=== PATIENT | male | born 1960 | race Two or more races ===

== ENCOUNTER 2023-05-23 15:40 | Inpatient (IN) | payer OTHER ==
[~2023-05-23] VITALS: Ht 165.1 cm; Wt 76.1 kg
[2023-05-23] MEDS ORDERED: IBUPROFEN 600 MG TABLET PO ONE (16:15)
[2023-05-23] MEDS ORDERED: FINA-27 PO (17:50)
[2023-05-23] MEDS ORDERED: SULI200T4 PO (17:50)
[2023-05-23] MEDS ORDERED: CAPS60CR3 TP (17:50)
[2023-05-23] MEDS ORDERED: LACT10SO10 PO (17:50)
[2023-05-23] MEDS ORDERED: BUPR1FIL7 SL (17:50)
[2023-05-23] MEDS ORDERED: TAMS0.4C94 PO (17:50)
[2023-05-23] MEDS ORDERED: ATOR20TA65 PO (17:50)
[2023-05-23] MEDS ORDERED: ACET-2895 PO (17:50)
[2023-05-23] MEDS ORDERED: LISI-661 PO (17:50)
[2023-05-23] MEDS ORDERED: ASPI81TA87 PO (17:50)
[2023-05-23] MEDS ORDERED: CALC625T66 PO (17:50)
[2023-05-23] MEDS ORDERED: HYDR25TA2 PO (17:50)
[2023-05-23] MEDS ORDERED: SPIR-37 PO (17:50)
[2023-05-23] MEDS ORDERED: COLL1PAC16 TP (17:50)
[2023-05-23] MEDS ORDERED: LEVO25TA9 PO (17:50)
[2023-05-23] MEDS ORDERED: LIDO1ADH83 TP (17:50)
[2023-05-23] MEDS ORDERED: FLUO20SO24 PO (17:50)
[2023-05-23 18:02] LABS: BASOPHILS % (AUTO) 1.3 % (0.0-2.0); EOSINOPHILS % (AUTO) 2.2 % (1.0-6.0); HEMATOCRIT 37.8 % (41-53); HEMOGLOBIN 12.6 g/dL (13.5-17.5); LYMPHOCYTES % (AUTO) 33.9 % (22.0-44.0); MEAN CORPUSCULAR HEMOGLOBIN 31.8 pg (26.0-34.0); MEAN CORPUSCULAR HGB CONC 33.4 G/dL (31.0-37.0); MEAN CORPUSCULAR VOLUME 95 fL (80-100); MONOCYTES # (AUTO) 0.5 K/uL (0.1-1.0); MONOCYTES % (AUTO) 7.7 % (2.0-9.0); NEUTROPHILS # (AUTO) 3.2 K/uL (1.8-7.7); NEUTROPHILS % (AUTO) 54.9 % (40.0-70.0); PLATELET COUNT (AUTO) 175 K/uL (150-450); RED BLOOD CELL COUNT(AUTO) 3.97 MIL/uL (4.50-5.90); RED CELL DISTRIBUTION WIDTH 13.7 % (11.5-14.5); WHITE BLOOD COUNT (AUTO) 5.9 K/uL (4.5-11.0)
[2023-05-23 18:13] LABS: ANION GAP 8 mmol/L (8-16); CALCIUM, TOTAL 9.1 mg/dL (8.8-10.5); CARBON DIOXIDE 29 mmol/L (22-29); CHLORIDE 101 mmol/L (98-107); CREATININE 0.58 mg/dL (0.60-1.30); GLOMERULAR FILTR. RATE CALC > 60 mL/min (>60); GLUCOSE,RANDOM 99 mg/dL (70-110); POTASSIUM 3.8 mmol/L (3.5-5.1); SODIUM SERUM 138 mmol/L (136-145); UREA NITROGEN, BLOOD 14 mg/dL (7-18)
[2023-05-23 18:22] LABS: TROPONIN I-HIGH SENSITIVITY 4 ng/L (<76)
[2023-05-23 18:23] LABS: B-TYPE NATRIURETIC PEPTIDE 24 pg/mL (0-100)
[2023-05-23 18:39] LABS: ALANINE AMINOTRANSFERASE 24 U/L (12-78); ALKALINE PHOSPHATASE 138 U/L (46-116); ASPARTATE AMINOTRANSFERASE 20 U/L (15-37); BILIRUBIN,TOTAL 0.4 mg/dL (0.1-1.0); CREATINE KINASE, TOTAL ONLY 165 U/L (39-308); TOTAL PROTEIN, SERUM 7.4 g/dL (6.4-8.2)
[2023-05-23 19:43] LABS: COVID AG,FIA SOURCE NASAL SWAB
[2023-05-23 19:46] LABS: APPEARANCE,URINE CLEAR (CLEAR); BILIRUBIN,URINE NEGATIVE (NEGATIVE); COLOR,URINE LIGHT YELLOW (YELLOW); GLUCOSE, URINE (UA) NEGATIVE (NEGATIVE); KETONES,URINE NEGATIVE (NEGATIVE); LEUKOCYTE ESTERASE ,URINE NEGATIVE (NEGATIVE); NITRATE,URINE NEGATIVE (NEGATIVE); OCCULT BLOOD,URINE NEGATIVE (NEGATIVE); PROTEIN,URINE NEGATIVE (NEGATIVE); SPECIFIC GRAVITIY, URINE 1.009 (1.003-1.030); UROBILINOGEN,URINE <=1.0 mg/dL (<=1.0)
[2023-05-23] MEDS ORDERED: CLINDAMYCIN 600 MG/D5% WATER 50 ML IV ONE (20:00)
[2023-05-23] MEDS ORDERED: ONDANSETRON HCL 4 MG/2 ML VIAL IVP PRN (20:00)
[2023-05-23] MEDS ORDERED: ACETAMINOPHEN 325 MG TABLET PO PRN (20:00)
[2023-05-23 20:01] LABS: SARS-COV2 (COVID) ANTIGEN,FIA Negative (Negative)
[2023-05-23 20:41] VITALS: BP 142/86; PULSE 61; RESP 18; TEMP 97.5
[2023-05-23] MEDS ORDERED: SULFAMETHOX/TRIMETH DS 800-160 MG/TABLET PO ONE (20:45)
[2023-05-23 21:00] VITALS: BP 142/86; PULSE 61; RESP 18; TEMP 97.5; O2SAT 100
[2023-05-23] MEDS ORDERED: LACTULOSE 20 GM/30 ML SOLUTION UDCUP PO PRN (21:00)
[2023-05-23] MEDS ORDERED: VANCOMYCIN HCL 1.5 GM in DEXTROSE 5%-WATER 250 ML IV ONE (21:30)
[2023-05-23] MEDS: SULINDAC 200 MG TABLET PO SCH (22:46)
[2023-05-23] MEDS: DOCUSATE SODIUM 100 MG CAPSULE PO SCH (22:46)
[2023-05-23] MEDS: CALCIUM POLYCARBOPHIL 625 MG TABLET PO SCH (22:47)
[2023-05-23] MEDS: CAPSAICIN 0.025% 60 GM CREAM TP SCH (22:47)
[2023-05-24] VITALS (8 sets, daily range): BP systolic 96–141; BP diastolic 54–92; PULSE 61–89; RESP 18–20; TEMP 97.5–98.3
[2023-05-24] MEDS: HEPARIN SODIUM,PORCINE 5,000 UNITS/ML VIAL SQ SCH ×3 (00:43→16:10)
[2023-05-24 05:21] LABS: BASOPHILS % (AUTO) 0.4 % (0.0-2.0); EOSINOPHILS % (AUTO) 2.8 % (1.0-6.0); HEMATOCRIT 36.5 % (41-53); HEMOGLOBIN 12.7 g/dL (13.5-17.5); LYMPHOCYTES # (AUTO) 1.6 K/uL (1.0-4.8); LYMPHOCYTES % (AUTO) 24.6 % (22.0-44.0); MEAN CORPUSCULAR HEMOGLOBIN 32.4 pg (26.0-34.0); MEAN CORPUSCULAR HGB CONC 34.7 G/dL (31.0-37.0); MEAN CORPUSCULAR VOLUME 93 fL (80-100); MONOCYTES # (AUTO) 0.6 K/uL (0.1-1.0); MONOCYTES % (AUTO) 8.9 % (2.0-9.0); NEUTROPHILS # (AUTO) 4.2 K/uL (1.8-7.7); NEUTROPHILS % (AUTO) 63.3 % (40.0-70.0); PLATELET COUNT (AUTO) 176 K/uL (150-450); RED BLOOD CELL COUNT(AUTO) 3.92 MIL/uL (4.50-5.90); WHITE BLOOD COUNT (AUTO) 6.6 K/uL (4.5-11.0)
[2023-05-24 05:35] LABS: ANION GAP 6 mmol/L (8-16); CALCIUM, TOTAL 8.9 mg/dL (8.8-10.5); CARBON DIOXIDE 31 mmol/L (22-29); CHLORIDE 102 mmol/L (98-107); CREATININE 0.64 mg/dL (0.60-1.30); GLOMERULAR FILTR. RATE CALC > 60 mL/min (>60); GLUCOSE,RANDOM 91 mg/dL (70-110); POTASSIUM 4.1 mmol/L (3.5-5.1); SODIUM SERUM 139 mmol/L (136-145); UREA NITROGEN, BLOOD 10 mg/dL (7-18)
[2023-05-24] MEDS: LEVOTHYROXINE SODIUM 25 MCG TABLET PO SCH (06:12)
[2023-05-24] MEDS ORDERED: VANCOMYCIN HCL 1.25 GM in DEXTROSE 5%-WATER 250 ML IV SCH (08:00)
[2023-05-24] MEDS: FLUoxetine HCL 20 MG CAPSULE PO SCH (08:52)
[2023-05-24] MEDS: DOCUSATE SODIUM 100 MG CAPSULE PO SCH ×2 (08:52→21:46)
[2023-05-24] MEDS: LISINOPRIL 10 MG TABLET PO SCH (08:52)
[2023-05-24] MEDS: FINASTERIDE 5 MG TABLET PO SCH (08:52)
[2023-05-24] MEDS: ASPIRIN 81 MG DR TABLET PO SCH (08:53)
[2023-05-24] MEDS: TAMSULOSIN HCL 0.4 MG CAPSULE PO SCH (08:53)
[2023-05-24] MEDS: SPIRONOLACTONE 25 MG TABLET PO SCH (08:53)
[2023-05-24] MEDS: VANCOMYCIN 1GM/WATER(PEG/NADA) 200 ML IV SCH ×2 (09:00→16:09)
[2023-05-24] MEDS: COLLOIDAL OATMEAL PACKET TP SCH (09:00)
[2023-05-24] MEDS: CALCIUM POLYCARBOPHIL 625 MG TABLET PO SCH ×2 (09:00→21:52)
[2023-05-24] MEDS: CAPSAICIN 0.025% 60 GM CREAM TP SCH ×3 (09:00→21:00)
[2023-05-24] MEDS: ATORVASTATIN CALCIUM 20 MG TABLET PO SCH (09:00)
[2023-05-24] MEDS ORDERED: COLLOIDAL OATMEAL PACKET TP SCH (09:00)
[2023-05-24] MEDS ORDERED: HYDROCHLOROTHIAZIDE 25 MG TABLET PO SCH (09:00)
[2023-05-24] MEDS: SULINDAC 200 MG TABLET PO SCH ×2 (09:02→21:46)
[2023-05-25] VITALS: BP 109/72; PULSE 63; RESP 18; TEMP 97.5
[2023-05-25] MEDS: VANCOMYCIN 1GM/WATER(PEG/NADA) 200 ML IV SCH ×2 (00:23→08:54)
[2023-05-25] MEDS: HEPARIN SODIUM,PORCINE 5,000 UNITS/ML VIAL SQ SCH ×3 (00:23→16:00)
[2023-05-25 04:39] VITALS: BP 121/69; PULSE 57; RESP 18; TEMP 97.4
[2023-05-25] MEDS: LEVOTHYROXINE SODIUM 25 MCG TABLET PO SCH (05:53)
[2023-05-25 07:09] LABS: ANION GAP 6 mmol/L (8-16); CALCIUM, TOTAL 8.9 mg/dL (8.8-10.5); CARBON DIOXIDE 30 mmol/L (22-29); CHLORIDE 101 mmol/L (98-107); CREATININE 0.67 mg/dL (0.60-1.30); GLOMERULAR FILTR. RATE CALC > 60 mL/min (>60); GLUCOSE,RANDOM 93 mg/dL (70-110); POTASSIUM 4.6 mmol/L (3.5-5.1); SODIUM SERUM 137 mmol/L (136-145); UREA NITROGEN, BLOOD 16 mg/dL (7-18)
[2023-05-25 08:16] VITALS: BP 127/78; PULSE 68; RESP 16; TEMP 98.1
[2023-05-25] MEDS: DOCUSATE SODIUM 100 MG CAPSULE PO SCH (08:44)
[2023-05-25] MEDS: SPIRONOLACTONE 25 MG TABLET PO SCH (08:44)
[2023-05-25] MEDS: ASPIRIN 81 MG DR TABLET PO SCH (08:45)
[2023-05-25] MEDS: TAMSULOSIN HCL 0.4 MG CAPSULE PO SCH (08:46)
[2023-05-25] MEDS: FLUoxetine HCL 20 MG CAPSULE PO SCH (08:46)
[2023-05-25] MEDS: FINASTERIDE 5 MG TABLET PO SCH (08:46)
[2023-05-25] MEDS: ATORVASTATIN CALCIUM 20 MG TABLET PO SCH (08:46)
[2023-05-25] MEDS: LISINOPRIL 10 MG TABLET PO SCH (08:46)
[2023-05-25] MEDS: CAPSAICIN 0.025% 60 GM CREAM TP SCH ×3 (09:00→16:00)
[2023-05-25] MEDS: COLLOIDAL OATMEAL PACKET TP SCH (09:00)
[2023-05-25] MEDS: SULINDAC 200 MG TABLET PO SCH (11:37)
[2023-05-25] MEDS ORDERED: CLIN300C58 PO (11:46)
[2023-05-25 11:51] VITALS: BP 109/66; PULSE 68; RESP 16; TEMP 97.7
[2023-05-25] MEDS: CALCIUM POLYCARBOPHIL 625 MG TABLET PO SCH (11:56)
[2023-05-25 16:00] VITALS: BP 128/68; PULSE 66; RESP 17; TEMP 98
[2023-05-25] MEDS ORDERED: CLINDAMYCIN HCL 300 MG CAPSULE PO SCH (16:00)
== END 2023-05-25 19:45 | DRG 603 ==
LOC: EMS 15:42 → 5S 20:39
PROVIDERS: ADMIT Internal Medicine; ATTEND Internal Medicine
DX: L03.115 Cellulitis of right lower limb (principal); Z20.822 Contact with and (suspected) exposure to COVID-19; E78.5 Hyperlipidemia, unspecified; F19.10 Other psychoactive substance abuse, uncomplicated; N40.0 Benign prostatic hyperplasia without lower urinary tract symptoms; G89.29 Other chronic pain; M54.9 Dorsalgia, unspecified; E03.9 Hypothyroidism, unspecified; L60.0 Ingrowing nail; I10 Essential (primary) hypertension; F31.9 Bipolar disorder, unspecified; F60.3 Borderline personality disorder; Z87.891 Personal history of nicotine dependence
CPT/HCPCS: 71045; 80048; 80053; 80202; 81003; 82550; 83735; 83880; 84443; 84484; 85025; 85651; 86140; 93005; 99285; J1644; J3370; J3490; J7060; Q9967; 36415-L1; 36415-TC

== ENCOUNTER 2023-07-22 18:26 | Inpatient (IN) | payer OTHER ==
[~2023-07-22] VITALS: Ht 162.6 cm; Wt 77.3 kg
[~2023-07-22 18:26] MED LIST: ACET-2895 PO; ASPI81TA87 PO; ATOR20TA65 PO; BUPR1FIL7 SL; CALC625T66 PO; CAPS60CR3 TP; CLIN300C58 PO; COLL1PAC16 TP; FINA-27 PO; FLUO20SO24 PO; LACT10SO10 PO; LEVO25TA9 PO; LIDO1ADH83 TP; LISI-661 PO; SPIR-37 PO; SULI200T4 PO; TAMS0.4C94 PO
[2023-07-22] MEDS ORDERED: 0.9% SODIUM CHLORIDE 10 ML SYRINGE IVP PRN (19:45)
[2023-07-22 19:56] LABS: BASOPHILS % (AUTO) 0.5 % (0.0-2.0); HEMATOCRIT 34.1 % (41-53); HEMOGLOBIN 11.9 g/dL (13.5-17.5); LYMPHOCYTES # (AUTO) 1.4 K/uL (1.0-4.8); LYMPHOCYTES % (AUTO) 20.2 % (22.0-44.0); MEAN CORPUSCULAR HGB CONC 34.8 G/dL (31.0-37.0); MEAN CORPUSCULAR VOLUME 95 fL (80-100); MONOCYTES # (AUTO) 0.7 K/uL (0.1-1.0); MONOCYTES % (AUTO) 9.6 % (2.0-9.0); NEUTROPHILS # (AUTO) 4.6 K/uL (1.8-7.7); NEUTROPHILS % (AUTO) 64.7 % (40.0-70.0); PLATELET COUNT (AUTO) 184 K/uL (150-450); RED CELL DISTRIBUTION WIDTH 13.5 % (11.5-14.5); WHITE BLOOD COUNT (AUTO) 7.1 K/uL (4.5-11.0)
[2023-07-22 20:08] LABS: COVID AG,FIA SOURCE NASAL SWAB
[2023-07-22 20:12] LABS: ANION GAP 5 mmol/L (8-16); CARBON DIOXIDE 33 mmol/L (22-29); CHLORIDE 99 mmol/L (98-107); CREATININE 0.59 mg/dL (0.60-1.30); GLOMERULAR FILTR. RATE CALC > 60 mL/min (>60); GLUCOSE,RANDOM 134 mg/dL (70-110); POTASSIUM 3.8 mmol/L (3.5-5.1); SODIUM SERUM 137 mmol/L (136-145); UREA NITROGEN, BLOOD 17 mg/dL (7-18)
[2023-07-22 20:15] LABS: B-TYPE NATRIURETIC PEPTIDE 12 pg/mL (0-100)
[2023-07-22 20:18] LABS: D-DIMER 1.29 mg/L FEU (0.00-0.50); INR 1.1 (0.9-1.1); PROTHROMBIN TIME 11.6 SEC (9.4-11.6)
[2023-07-22 20:20] LABS: ALANINE AMINOTRANSFERASE 26 U/L (12-78); ALBUMIN 3.3 g/dL (3.4-5.0); ALKALINE PHOSPHATASE 127 U/L (46-116); ASPARTATE AMINOTRANSFERASE 20 U/L (15-37); BILIRUBIN,TOTAL 0.6 mg/dL (0.1-1.0); TOTAL PROTEIN, SERUM 7.1 g/dL (6.4-8.2); TROPONIN I-HIGH SENSITIVITY 6 ng/L (<76)
[2023-07-22 20:24] LABS: LACTIC ACID 0.8 mmol/L (0.4-2.0)
[2023-07-22 20:29] LABS: SARS-COV2 (COVID) ANTIGEN,FIA Negative (Negative)
[2023-07-22] MEDS: VANCOMYCIN 1.5 GM/WATER(PEG) 300 ML IV ONE (20:35)
[2023-07-22 21:28] VITALS: BP 110/60; PULSE 80; RESP 18; TEMP 97.5
[2023-07-22] MEDS: SODIUM CHLORIDE 0.9% 1,000 ML IV SCH (23:50)
[2023-07-22] MEDS: KETOROLAC TROMETHAMINE 30 MG/ML VIAL IVP PRN (23:51)
[2023-07-22] MEDS: HEPARIN SODIUM,PORCINE 5,000 UNITS/ML VIAL SQ SCH (23:52)
[2023-07-23] MEDS: CefTRIAXone 1 GM/DEXTROSE 50 ML IV SCH (00:14)
[2023-07-23 06:30] VITALS: BP 135/76; PULSE 74; RESP 20; TEMP 97.8
[2023-07-23 07:58] LABS: BASOPHILS % (AUTO) 0.4 % (0.0-2.0); EOSINOPHILS % (AUTO) 2.1 % (1.0-6.0); HEMATOCRIT 38.3 % (41-53); HEMOGLOBIN 12.9 g/dL (13.5-17.5); LYMPHOCYTES # (AUTO) 1.4 K/uL (1.0-4.8); LYMPHOCYTES % (AUTO) 12.8 % (22.0-44.0); MEAN CORPUSCULAR HEMOGLOBIN 32.3 pg (26.0-34.0); MEAN CORPUSCULAR HGB CONC 33.8 G/dL (31.0-37.0); MEAN CORPUSCULAR VOLUME 96 fL (80-100); MONOCYTES # (AUTO) 0.5 K/uL (0.1-1.0); MONOCYTES % (AUTO) 4.2 % (2.0-9.0); NEUTROPHILS # (AUTO) 8.8 K/uL (1.8-7.7); NEUTROPHILS % (AUTO) 80.5 % (40.0-70.0); PLATELET COUNT (AUTO) 188 K/uL (150-450); RED BLOOD CELL COUNT(AUTO) 4.01 MIL/uL (4.50-5.90); RED CELL DISTRIBUTION WIDTH 13.5 % (11.5-14.5)
[2023-07-23 08:06] VITALS: BP 145/70; PULSE 94; RESP 20; TEMP 98
[2023-07-23 08:14] LABS: ANION GAP 5 mmol/L (8-16); CALCIUM, TOTAL 8.7 mg/dL (8.8-10.5); CARBON DIOXIDE 30 mmol/L (22-29); CHLORIDE 103 mmol/L (98-107); CREATININE 0.55 mg/dL (0.60-1.30); GLOMERULAR FILTR. RATE CALC > 60 mL/min (>60); GLUCOSE,RANDOM 88 mg/dL (70-110); POTASSIUM 4.1 mmol/L (3.5-5.1); SODIUM SERUM 138 mmol/L (136-145); UREA NITROGEN, BLOOD 15 mg/dL (7-18)
[2023-07-23] MEDS: VANCOMYCIN 1GM/WATER(PEG/NADA) 200 ML IV SCH (08:46)
[2023-07-23] MEDS ORDERED: ACETAMINOPHEN 325 MG TABLET PO PRN (11:00)
[2023-07-23] MEDS ORDERED: MAGNESIUM HYDROXIDE SUSPENSION 30 ML UDCUP PO PRN (11:00)
[2023-07-23] MEDS ORDERED: BISACODYL 10 MG RECTAL RECTAL SUPPOSITORY PR PRN (11:00)
[2023-07-23] MEDS ORDERED: ZOLPIDEM TARTRATE 5 MG TABLET PO PRN (11:00)
[2023-07-23] MEDS ORDERED: ONDANSETRON HCL 4 MG/2 ML VIAL IVP PRN (11:00)
[2023-07-23 19:40] VITALS: BP 109/69; PULSE 80; RESP 18; TEMP 97.8
[2023-07-23] MEDS: DOCUSATE SODIUM 100 MG CAPSULE PO SCH (20:09)
[2023-07-24 01:40] LABS: APPEARANCE,URINE CLEAR (CLEAR); BILIRUBIN,URINE NEGATIVE (NEGATIVE); COLOR,URINE YELLOW (YELLOW); GLUCOSE, URINE (UA) NEGATIVE (NEGATIVE); KETONES,URINE NEGATIVE (NEGATIVE); LEUKOCYTE ESTERASE ,URINE NEGATIVE (NEGATIVE); NITRATE,URINE NEGATIVE (NEGATIVE); OCCULT BLOOD,URINE NEGATIVE (NEGATIVE); PH,URINE 5.5 (5.0-8.0); PROTEIN,URINE NEGATIVE (NEGATIVE); SPECIFIC GRAVITIY, URINE 1.023 (1.003-1.030); UROBILINOGEN,URINE <=1.0 mg/dL (<=1.0)
[2023-07-24 04:07] VITALS: BP 122/74; PULSE 69; RESP 18; TEMP 98.1
[2023-07-24 04:45] VITALS: BP 122/74; PULSE 69; RESP 18; TEMP 98.1
[2023-07-24 08:00] VITALS: BP 110/70; PULSE 66; RESP 18; TEMP 98.1
[2023-07-24 08:01] LABS: BASOPHILS % (AUTO) 0.2 % (0.0-2.0); EOSINOPHILS % (AUTO) 1.7 % (1.0-6.0); HEMATOCRIT 30.3 % (41-53); HEMOGLOBIN 10.6 g/dL (13.5-17.5); LYMPHOCYTES # (AUTO) 1.2 K/uL (1.0-4.8); LYMPHOCYTES % (AUTO) 13.5 % (22.0-44.0); MEAN CORPUSCULAR HEMOGLOBIN 33.4 pg (26.0-34.0); MEAN CORPUSCULAR VOLUME 95 fL (80-100); MONOCYTES # (AUTO) 0.6 K/uL (0.1-1.0); MONOCYTES % (AUTO) 6.4 % (2.0-9.0); NEUTROPHILS % (AUTO) 78.2 % (40.0-70.0); PLATELET COUNT (AUTO) 144 K/uL (150-450); RED BLOOD CELL COUNT(AUTO) 3.18 MIL/uL (4.50-5.90); RED CELL DISTRIBUTION WIDTH 13.6 % (11.5-14.5); WHITE BLOOD COUNT (AUTO) 8.9 K/uL (4.5-11.0)
[2023-07-24 08:21] LABS: ANION GAP 4 mmol/L (8-16); CALCIUM, TOTAL 7.8 mg/dL (8.8-10.5); CARBON DIOXIDE 29 mmol/L (22-29); CHLORIDE 104 mmol/L (98-107); CREATININE 0.45 mg/dL (0.60-1.30); GLOMERULAR FILTR. RATE CALC > 60 mL/min (>60); GLUCOSE,RANDOM 108 mg/dL (70-110); POTASSIUM 3.6 mmol/L (3.5-5.1); SODIUM SERUM 137 mmol/L (136-145); UREA NITROGEN, BLOOD 13 mg/dL (7-18)
[2023-07-24] MEDS: PANTOPRAZOLE SODIUM 40 MG DR TABLET PO SCH (08:26)
[2023-07-24] MEDS ORDERED: AMOX-426 PO (11:20)
== END 2023-07-24 18:36 | DRG 603 ==
LOC: EMS 18:29 → 6S 20:09
PROVIDERS: ADMIT Internal Medicine; ATTEND Internal Medicine
DX: L03.115 Cellulitis of right lower limb (principal); L03.116 Cellulitis of left lower limb; I10 Essential (primary) hypertension; E03.9 Hypothyroidism, unspecified; Z20.822 Contact with and (suspected) exposure to COVID-19; K59.00 Constipation, unspecified; F31.9 Bipolar disorder, unspecified; E78.5 Hyperlipidemia, unspecified; Z87.891 Personal history of nicotine dependence
CPT/HCPCS: 71045; 80048; 80053; 81003; 83605; 83735; 83880; 84145; 84484; 85025; 85379; 85610; 87040; 93005; 93970; 99285; J0696; J1644; J1885; J7030; Q9967; 36415-L1; 36415-TC